=== PATIENT | female | born 1980 | race African-American/Black ===

== ENCOUNTER 2018-05-31 19:37 | Observation (INO) | payer MEDICARE ==
[~2018-05-31 19:37] MED LIST: ISOVUE-370 76%-LOCM 1 ML ONE
[2018-05-31 20:26] LABS: Hemoglobin 12.8 g/dL (12.0-16.0); Mean Corpuscular HGB CONC 32.5 g/dL (32.0-36.0); Mean Corpuscular Hemoglobin 33.4 pg (27.0-31.0); Mean Platelet Volume 8.3 fL (7.4-10.4); Platelet Count 136 thou/uL (130-400); RBC Distribution Width 10.9 % (11.5-14.5); Red Blood Cell (RBC) Count 3.82 mill/uL (4.20-5.40); White Blood Cell (WBC) Count 10.1 thou/uL (4.8-10.8)
[2018-05-31 20:41] LABS: ALT (SGPT) 9 U/L (8-55); AST (SGOT) 14 U/L (5-34); Albumin 4.3 g/dL (3.5-5.0); Alkaline Phosphatase 57 U/L (40-150); Anion Gap 15 mmol/L (10-20); BUN (Urea Nitrogen) 7 mg/dL (7.0-18.7); Bilirubin, Total 0.4 mg/dL (0.2-1.2); CK (CPK) 106 U/L (29-168); Calc. Creatinine Clearance 0 mL/min (70-130); Carbon Dioxide 20 mmol/L (22-29); Chloride 107 mmol/L (98-107); Estimated GFR-MDRD Greater than 90; Globulin 2.9 g/dL (2.4-3.5); Glucose 91 mg/dL (70-105); Lipase 24 U/L (8-78); Potassium 3.8 mmol/L (3.5-5.1); Protein, Total 7.2 g/dL (6.0-8.3); Sodium 138 mmol/L (136-145)
[2018-05-31 20:44] LABS: BHCG - Serum Negative (NEGATIVE); Pregs Control Background? CLEAR/WHITE (CLR/WHITE); Pregs Control Bar Appear? YES (CONTROL BAR)
[2018-05-31 20:54] LABS: Lymphocytes 27 % (21-51); MDiff Complete? YES; Monocytes 1 % (0-10); Neutrophil 72 % (42-75); Platelet Morphology Comment Appears Adequate; RBC Morphology Normal
[2018-05-31 20:57] LABS: INR-International Normal Ratio 1.1; PTT 30.6 SEC (22.9-36.1); Prothrombin Time 14.7 SEC (12.0-14.7)
[2018-05-31] MEDS ORDERED: Fentanyl 100 MCG/2 ML VIAL ONE (21:21)
[2018-05-31] MEDS ORDERED: Clopidogrel Bisulfate 75 MG TAB ONE (21:21)
[2018-05-31 21:43] LABS: Bilirubin Negative (Negative); Blood, Urine Negative (Negative); Clarity CLEAR (Clear); Glucose, Urine (Dipstick) Negative (Negative); Leukocyte Negative (Negative); Nitrite Negative (Negative); Protein, Urine (Dipstick) Negative (Neg-Trace); Specific Gravity, Urine 1.037 (1.002-1.036); pH, Urine 7.5 (5.0-9.0)
[2018-05-31 21:52] LABS: Amphetamine Not Detected (NotDetected); Barbiturates Screen Not Detected (NotDetected); Benzodiazepine Screen Not Detected (NotDetected); Cocaine Metabolite Screen Not Detected (NotDetected); Medtox Control Line Valid? VALID (VALID); Medtox Reader # READER 4; Methadone Not Detected (NotDetected); Methamphetamine Not Detected (NotDetected); Opiate Screen Not Detected (NotDetected); Oxycodone Screen Not Detected (NotDetected); Phencyclidine (PCP) Not Detected (NotDetected); THC/Cannabinoid Screen Detected (NotDetected); Tricyclic Screen Not Detected (NotDetected)
--- NOTE | 2018-05-31 22:13 | RAD ---
CHEST ONE VIEW: History: Chest pain Comparison: 04-23-16 FINDINGS: Lungs are clear. No pneumothorax or effusion. Cardiac silhouette and mediastinal contours are within normal limits. No acute osseous abnormality. IMPRESSION: No acute intrathoracic abnormality. POS: [facility]
--- NOTE | 2018-05-31 22:25 | CT ---
CT BRAIN WITHOUT CONTRAST: History: Altered mental status. Comparison: 2004 FINDINGS: There is no acute hemorrhage or infarct. No midline shift or mass effect. Ventricular size and extraa xial CSF spaces are normal. The calvarium is intact. The paranasal sinuses and mastoids are clear. Globes are intact. IMPRESSION: No acute intracranial abnormality. POS: [facility]
--- NOTE | 2018-05-31 22:39 | CT ---
CT ANGIOGRAM HEAD WITH CONTRAST: History: Stroke alert. Comparison: Ct brain. Same day. FINDINGS: CT angiogram of the head and neck was performed after the intravenous administration of contrast. 3D rendering is provided. Lung apices are clear. Thyroid is unremarkable. Mild straightening of the cervical lordosis. No cervical adenopathy. The globes are normal. The vertebral arteries are codominant. No significant thrombosis nor aneurysm formation. The common carotid arteries are patent. No stenosis, thrombosis, or aneurysm formation. [place] is patent. IMPRESSION: Normal CT angiogram of the head and neck. Code CR. Dr. Marroquin. 9:00 p.m. POS: [facility]
[2018-06-01] MEDS: Acetaminophen 325 MG TAB PO PRN ×2 (00:21→08:18)
[2018-06-01 00:48] VITALS: BMI 20.7
--- NOTE | 2018-06-01 02:20 | HP ---
CHIEF COMPLAINT: Chest pain. HISTORY OF PRESENT ILLNESS: She is a 37-year-old woman with no significant past medical history of hypertension. She came in with having some chest pain and left-sided numbness of the left arm today and weakness 3/5 in the left arm also. The patient was coaching basket ball, was worked up and after 2 hours practice she felt like her symptoms started, left arm pain with numbness and weakness, and some slurred speech noted by her partner. She denies loss of consciousness, no vomiting, and the patient has a strong family history of stroke in the past. When she came to the ER, she was started on stroke protocol. TPN was not given because of her symptoms and case discussed with Interventional Neurosurgeon On-call. CTA neck , CT head and CT scan of neck came back negative. Her motor weakness was 2/5 when she came in, improved to 4/5. MEDICATIONS: She is not taking any medicines at home. PERSONAL HISTORY: She does smoke 1 pack a day and denies alcohol and drug use. FAMILY HISTORY: Positive for stroke. REVIEW OF SYSTEMS: GENERAL: She reported weakness on her left side, some headache, some vision changes. CARDIOVASCULAR: She has some chest pain radiating to her neck with numbness. RESPIRATORY: There is no cough, no short of breath, no wheezing. ABDOMEN: GI, no nausea, no vomiting, no diarrhea. No hematemesis, no melena. MUSCULOSKELETAL: No joint pain. NEUROLOGIC: She does have some weakness and numbness on her left upper arm. PHYSICAL EXAMINATION: VITAL SIGNS: Pulse 85, blood pressure 180/84, respirations 20, and temperature 98.4. HEENT: Head is atraumatic and normocephalic. Pupils are round and reactive. Extraocular movements are intact. Ear, nose, and throat normal. Tongue, mucosa moist. NECK: Supple. No JVD. No thyromegaly. No carotid bruit. Trachea midline. No lymphadenopathy. CHEST: Normal vesicular breathing. Chest wall tenderness noted. No wheezing. No crackles or rhonchi. CVS: S1 is audible. No S3 or S4. ABDOMEN: Soft. Bowels sounds audible. No organomegaly. No guarding. EXTREMITIES: No peripheral edema. No cyanosis or clubbing. NEUROLOGIC: She is alert and oriented x3. Her left arm show some numbness and tingling and power 4/4 and some stiffness noted. No weakness in all extremities. Plantars are downgoing. Deep tendon reflexes are faster bilaterally, +2. LABORATORY DATA: Labs show EKG normal sinus rhythm, 70s. No ST changes. CT head is negative. CT angio of head is negative. MRI pending. Urine drug screen is negative. WBC 10.0, hemoglobin 12.8, hematocrit 39.3, platelets 136, PT 14.7, INR 1.1. Sodium 138, potassium 3.8, chloride 107, carbon dioxide 20, anion gap 15, BUN 17, creatine 0.8, glucose 91, calcium 9.0, AST 9, creatinine kinase is 106, Lipase 24. Urine negative. Urine screen, cannabinoid detected. ASSESSMENT AND PLAN: 1. Stroke-like symptoms, possibly weak in the left upper extremities. CTA head and neck are negative. Stroke protocol. Echocardiogram in the morning. MRA in the morning. She is allergic to aspirin. Plavix was given in the ER. Lipitor provided in the morning and continue Lipitor. 2. Strong family history of stroke. 3. Thrombocytopenia mild, monitored. 4. Chronic smoker, tobacco abuse disorder. Counseling was done. 5. DVT prophylaxis, SCD's. 6. Full code. 7. Stroke protocol initiated. 8. Neurology will be consulted. Job ID: [id number] [facility]
[2018-06-01] MEDS: Clopidogrel Bisulfate 75 MG TAB PO SCH (08:18)
[2018-06-01] MEDS ORDERED: Lorazepam 1 MG TAB PO SCH (11:15)
[2018-06-01] MEDS ORDERED: Cyclobenzaprine 10 MG TAB PO PRN (13:56)
--- NOTE | 2018-06-01 15:36 | MRI ---
NONCONTRAST MRI BRAIN: Date: 06/01/18 INDICATION: Stroke, left-sided weakness. FINDINGS: There is no evidence of acute territorial infarction, intracranial mass effect, midline shift, or diana triculomegaly. No hemorrhagic susceptibility is seen. No intracranial hemorrhage. Visualized skull ba se flow-voids are patent. IMPRESSION: No acute territorial infarction, or intracranial mass effect. POS: [facility]
[2018-06-01] MEDS ORDERED: Atorvastatin Calcium 40 MG TAB PO SCH (21:00)
[2018-06-02] MEDS ORDERED: Lorazepam 1 MG TAB PO SCH (08:45)
[2018-06-02] MEDS ORDERED: Terbinafine 1% 30 GM TUBE TOP SCH (09:00)
[2018-06-02] MEDS: Clopidogrel Bisulfate 75 MG TAB PO SCH (09:53)
--- NOTE | 2018-06-02 12:20 | MRI ---
MRI CERVICAL SPINE WITHOUT CONTRAST: Date: 06/02/18 COMPARISON: None. HISTORY: Left-sided neck pain that extends into left arm. TECHNIQUE: Multiplanar, multisequence MR images were obtained of the cervical spine without contrast. FINDINGS: The vertebral bodies and intervertebral discs demonstrate normal height and alignment without fractur e or subluxation. The visualized cord demonstrates normal signal throughout. The craniocervical junct ion is unremarkable. The prevertebral and paraspinal soft tissues are unremarkable. No significant bulges or protrusions are seen throughout the cervical spine. There appears to be a ce ntral protrusion at T3-4, only imaged on the sagittal sequences. No neural foraminal or central canal stenosis is seen in the cervical spine. No posterior facet arthrosis is seen. IMPRESSION: 1. No significant cervical spine abnormality. 2. Partially visualized central protrusion at T3-4. POS: [facility]
[2018-06-02 12:24] VITALS: TEMP 98.6
--- NOTE | 2018-06-02 15:58 | PDOC.PN ---
- Subjective Encounter Start Date: 06/01/18 Encounter Start Time: 11:15 Subjective: pt up in bed still has weakness to her left arm - Objective Vital Signs & Weight: Vital Signs (12 hours) Temp Pulse Resp BP Pulse Ox 06/02/18 12:00 98.6 F 94 20 120/87 100 06/02/18 08:00 98.4 F 72 20 126/83 100 06/02/18 04:00 98.5 F 86 16 131/77 100 Weight Weight 124 lb 6.4 oz I&O: 06/01/18 06/02/18 06/03/18 06:59 06:59 06:59 Intake Total 300 240 720 Output Total 2 Balance 300 238 720 Result Diagrams: 05/31/18 20:14 05/31/18 20:14 Phys Exam - Physical Examination Neck: no nodes, no JVD, supple, full ROM Respiratory: no wheezing, no rales, no rhonchi, wheezing present, clear to auscultation bilateral Cardiovascular: RRR, no significant murmur, no rub, gallop, irregular Gastrointestinal: soft, non-tender, no distention, positive bowel sounds Musculoskeletal: no edema, pulses present, edema present some weakness noted to left arm but able to move it Dx/Plan (1) Left arm weakness Code(s): R29.898 - OTH SYMPTOMS AND SIGNS INVOLVING THE MUSCULOSKELETAL SYSTEM Status: Acute (2) Smoking Code(s): F17.200 - NICOTINE DEPENDENCE, UNSPECIFIED, UNCOMPLICATED Status: Acute - Plan pt's mri brain negative. -: stroke work up negative. she has been advised against smoking -: will get cervical MRi to rule out any nerve issues. * . Review of Systems - Review of Systems Respiratory: negative: Cough, Dry, Shortness of Breath, Hemoptysis, SOB with Excertion, Pleuritic Pain, Sputum, Wheezing Cardiovascular: negative: chest pain, palpitations, orthopnea, paroxysmal nocturnal dyspnea, edema, light headedness, other Gastrointestinal: negative: Nausea, Vomiting, Abdominal Pain, Diarrhea, Constipation, Melena, Hematochezia, Other Musculoskeletal: negative: Neck Pain, Shoulder Pain, Arm Pain, Back Pain, Hand Pain, Leg Pain, Foot Pain, Other Neurological: Weakness - Medications/Allergies Allergies/Adverse Reactions: Allergies Allergy/AdvReac Type Severity Reaction Status Date / Time aspirin Allergy Verified 05/31/18 23:50 Medications: Current Medications Acetaminophen (Tylenol) 650 mg PO Q4H PRN PRN Reason: Headache/Fever or Pain Last Admin: 06/01/18 08:18 Dose: 650 mg Atorvastatin Calcium (Lipitor) 40 mg PO HS [facility] Last Admin: 06/01/18 22:01 Dose: 40 mg Clopidogrel Bisulfate (Plavix) 75 mg PO DAILY [facility] Last Admin: 06/02/18 09:53 Dose: 75 mg Cyclobenzaprine HCl (Flexeril) 10 mg PO TID PRN PRN Reason: Muscle Spasm Last Admin: 06/01/18 14:55 Dose: 10 mg Sodium Chloride (Flush - Normal Saline) 10 ml IVF PRN PRN PRN Reason: Saline Flush Last Admin: 06/01/18 08:18 Dose: 10 ml Terbinafine HCl (Lamisil 1% Cream) 0 gm TOP DAILY [facility] Last Admin: 06/02/18 09:53 Dose: 1 applic
[2018-06-02 16:01] VITALS: BP 146/96
--- NOTE | 2018-06-03 01:57 | DIS ---
DATE OF ADMISSION: 05/31/2018 DATE OF DISCHARGE: 06/02/2018 DISCHARGE DIAGNOSES: As of the following; 1. Left arm weakness. 2. Smoking history. HOSPITAL COURSE: The patient is a 37-year-old female who initially presented to the hospital with possible stroke-like symptoms. The patient did have a CT brain which initially was negative. She also had an MRI of the brain, which was negative. She also had a CTA and was evaluated by a neurologist on arrival, CTA was also normal. The patient was seen by Neurology. She also had an echocardiogram which indicated an EF of 50% to 55%, everything else was normal. The patient stated that she has been under a lot of stress recently and her arm movement improved throughout the hospital stay. I also went ahead and did a cervical spine MRI to rule out any nerve abnormalities. Her cervical MRI was essentially normal. The patient was able to move her arm completely without any difficulty. The patient will follow up with [facility] as an outpatient. The patient has been advised against smoking cessation given increased risk of stroke in the future. HOME MEDICATIONS: She will be going home on no home medications. DISCHARGE INSTRUCTIONS: The patient has been recommended to follow up with her primary care doctor as an outpatient. PHYSICAL EXAMINATION: VITAL SIGNS: On discharge, 98.6, 94, 28, 100% on room air, 120/67. GENERAL: She is awake, alert, and oriented x3. Does not appear in any distress. CV: S1, S2 present. No murmurs, rubs, or gallops. ABDOMEN: Soft and nontender. Bowel sounds are present x2. EXTREMITIES: No edema. Pedal pulses are present x2. NEUROVASCULAR: No focal deficits noted. Again, she will be discharged home. She will follow up with her primary care doctor. Her left arm weakness was thought to be most likely secondary to stress induced and also significant amount of muscle tension was noted around her right cervical area. Job ID: [id number]
== END 2018-06-02 16:01 | disposition home or self-care (01) ==
LOC: ERS 19:37 → 2SE 23:01 → INTOOBSV 23:01
PROVIDERS: ADMIT Family Medicine; ATTEND Family Medicine
DX: R53.1 Weakness (principal); R47.81 Slurred speech; R07.9 Chest pain, unspecified; F17.210 Nicotine dependence, cigarettes, uncomplicated; D69.6 Thrombocytopenia, unspecified; Z88.8 Allergy status to other drugs, medicaments and biological substances; Z82.3 Family history of stroke
CPT/HCPCS: 70450; 70496; 70498; 70551; 71045; 72141; 80053; 80061; 80306; 81003; 82550; 82962; 83690; 84484; 84703; 85025; 85610; 85730; 93005; 93306; 96361; 96374; 97110; 97116 ×2; 97139 ×3; 99285; G0378 ×2; 36415; 36416; J3010; Q9966

== ENCOUNTER 2018-06-04 14:47 | Emergency (ER) | payer MEDICARE ==
[2018-06-04 15:13] LABS: #Basophils 0.2 thou/uL (0.0-0.2); #Eosinphils 0.2 thou/uL (0.0-0.7); #Monocytes 0.9 thou/uL (0.11-0.59); #Neutrophils 7.1 thou/uL (1.40-6.50); %Basophils 1.5 % (0.0-1.0); %Eosinophils 1.8 % (0.0-10.0); %Lymphocytes 26.1 % (21.0-51.0); %Monocytes 8.3 % (0.0-10.0); %Neutrophils 62.4 % (42.0-75.0); Mean Corpuscular HGB CONC 32.6 g/dL (32.0-36.0); Mean Corpuscular Hemoglobin 33.7 pg (27.0-31.0); Mean Platelet Volume 7.6 fL (7.4-10.4); Platelet Count 282 thou/uL (130-400); RBC Distribution Width 11.1 % (11.5-14.5); Red Blood Cell (RBC) Count 4.14 mill/uL (4.20-5.40); White Blood Cell (WBC) Count 11.4 thou/uL (4.8-10.8)
--- NOTE | 2018-06-04 15:15 | CT ---
CT HEAD NONCONTRAST: Date: 06/04/18 COMPARISON: 05/31/18. FINDINGS: There is no acute intracranial hemorrhage, mass effect, or midline shift. Imaged paranasal sinuses ar e clear. IMPRESSION: No acute intracranial hemorrhage or mass effect. Notification placed at 1502 hours on 06/04/18. CODE CR. POS: [facility]
[2018-06-04 15:22] LABS: INR-International Normal Ratio 1.1; PTT 28.2 SEC (22.9-36.1); Prothrombin Time 14.6 SEC (12.0-14.7)
[2018-06-04 15:38] LABS: ALT (SGPT) 12 U/L (8-55); AST (SGOT) 22 U/L (5-34); Albumin 4.5 g/dL (3.5-5.0); Alkaline Phosphatase 55 U/L (40-150); Anion Gap 15 mmol/L (10-20); BUN (Urea Nitrogen) 10 mg/dL (7.0-18.7); Bilirubin, Total 0.6 mg/dL (0.2-1.2); CK (CPK) 250 U/L (29-168); Calc. Creatinine Clearance 0 mL/min (70-130); Calcium 9.4 mg/dL (7.8-10.44); Carbon Dioxide 18 mmol/L (22-29); Chloride 106 mmol/L (98-107); Estimated GFR-MDRD 76; Globulin 3.1 g/dL (2.4-3.5); Glucose 85 mg/dL (70-105); Potassium 4.9 mmol/L (3.5-5.1); Protein, Total 7.6 g/dL (6.0-8.3); Sodium 134 mmol/L (136-145)
[2018-06-04] MEDS ORDERED: Dexamethasone 10 MG/ML VIAL ONE (16:00)
[2018-06-04] MEDS ORDERED: Metoclopramide HCl 10 MG/2 ML VIAL ONE (16:00)
[2018-06-04 16:30] LABS: Bilirubin Negative (Negative); Blood, Urine Negative (Negative); Clarity CLEAR (Clear); Glucose, Urine (Dipstick) Negative (Negative); Leukocyte Negative (Negative); Nitrite Negative (Negative); Protein, Urine (Dipstick) Negative (Neg-Trace); Specific Gravity, Urine 1.016 (1.002-1.036); pH, Urine 7.5 (5.0-9.0)
[2018-06-04 16:40] LABS: Amphetamine Not Detected (NotDetected); Barbiturates Screen Not Detected (NotDetected); Benzodiazepine Screen Not Detected (NotDetected); Cocaine Metabolite Screen Not Detected (NotDetected); Medtox Control Line Valid? VALID (VALID); Medtox Reader # READER 1; Methadone Not Detected (NotDetected); Methamphetamine Not Detected (NotDetected); Opiate Screen Not Detected (NotDetected); Oxycodone Screen Not Detected (NotDetected); Phencyclidine (PCP) Not Detected (NotDetected); THC/Cannabinoid Screen Detected (NotDetected); Tricyclic Screen Not Detected (NotDetected)
[2018-06-04 16:45] LABS: BHCG - Serum Negative (NEGATIVE); Pregs Control Background? CLEAR/WHITE (CLR/WHITE); Pregs Control Bar Appear? YES (CONTROL BAR)
[2018-06-04 16:53] LABS: Acetaminophen Less than 6.0 mcg/mL (10.0-30.0); Alcohol Less than 10 mg/dL (Less than 10); Lipase 35 U/L (8-78); Salicylate Less than 8.0 mg/dL (15.0-30.0)
== END 2018-06-04 17:16 | disposition home or self-care (01) ==
LOC: ERS 14:47
DX: M54.12 Radiculopathy, cervical region (principal); J45.909 Unspecified asthma, uncomplicated; F31.9 Bipolar disorder, unspecified; F20.9 Schizophrenia, unspecified; F17.210 Nicotine dependence, cigarettes, uncomplicated
CPT/HCPCS: 36415; 36416; 70450; 80053; 80306; 80307; 81003; 82550; 83690; 84146; 84484; 84703; 85025; 85610; 85730; 93005; 96361; 96374; 96375; J1100; J2765

== ENCOUNTER 2018-10-30 21:54 | Emergency (ER) | payer MEDICARE | END 2018-10-30 23:28 | disposition home or self-care (01) | LOC: ERS 21:54 | DX: R23.8 Other skin changes (principal); J45.909 Unspecified asthma, uncomplicated; F31.9 Bipolar disorder, unspecified; F20.9 Schizophrenia, unspecified; F17.210 Nicotine dependence, cigarettes, uncomplicated | CPT/HCPCS: 99283 ==

== ENCOUNTER 2019-07-04 08:45 | Emergency (ER) | payer OTHER, SELFPAY | END 2019-07-04 09:46 | disposition home or self-care (01) | LOC: ERS 08:45 | DX: S20.221A Contusion of right back wall of thorax, initial encounter (principal); F31.9 Bipolar disorder, unspecified; F20.9 Schizophrenia, unspecified; J45.909 Unspecified asthma, uncomplicated; F17.210 Nicotine dependence, cigarettes, uncomplicated; V43.02XA Car driver injured in collision with other type car in nontraffic accident, initial encounter; Y92.481 Parking lot as the place of occurrence of the external cause | CPT/HCPCS: 99284 ==

== ENCOUNTER 2021-04-19 16:53 | Emergency (ER) | payer SELFPAY ==
[2021-04-19] MEDS ORDERED: Acetaminophen 500 MG TAB ONE (18:09)
== END 2021-04-19 18:12 | disposition left against medical advice (07) ==
LOC: ERS 16:53
DX: Z53.21 Procedure and treatment not carried out due to patient leaving prior to being seen by health care provider (principal)

== ENCOUNTER 2021-08-02 10:10 | Emergency (ER) | payer SELFPAY ==
[2021-08-02] MEDS ORDERED: Famotidine/PF 20 mg/2ml Vial ONE (10:37)
[2021-08-02] MEDS ORDERED: Sucralfate 1 GM/10 ML UDCUP ONE (10:37)
[2021-08-02 10:56] LABS: BHCG - Serum Negative (NEGATIVE); Pregs Control Background? CLEAR/WHITE (CLR/WHITE); Pregs Control Bar Appear? YES (CONTROL BAR)
[2021-08-02 10:57] LABS: #Basophils 0.1 thou/uL (0.0-0.2); #Eosinphils 0.2 thou/uL (0.0-0.7); #Lymphocytes 2.2 thou/uL (1.20-3.40); #Monocytes 0.6 thou/uL (0.11-0.59); #Neutrophils 4.6 thou/uL (1.40-6.50); %Basophils 1.1 % (0.0-1.0); %Eosinophils 2.6 % (0.0-10.0); %Lymphocytes 28.6 % (21.0-51.0); %Monocytes 7.6 % (0.0-10.0); %Neutrophils 60.2 % (42.0-75.0); Hemoglobin 12.6 g/dL (12.0-16.0); Mean Corpuscular HGB CONC 33.5 g/dL (32.0-36.0); Mean Corpuscular Hemoglobin 34.6 pg (27.0-31.0); Platelet Count 246 thou/uL (130-400); Red Blood Cell (RBC) Count 3.65 mill/uL (4.20-5.40); White Blood Cell (WBC) Count 7.6 thou/uL (4.8-10.8)
[2021-08-02 11:07] LABS: ALT (SGPT) 7 U/L (8-55); AST (SGOT) 14 U/L (5-34); Alkaline Phosphatase 52 U/L (40-110); Anion Gap 10 mmol/L (10-20); BUN (Urea Nitrogen) 8 mg/dL (7.0-18.7); Bilirubin, Total 0.8 mg/dL (0.2-1.2); Calc. Creatinine Clearance 0 mL/min (70-130); Calcium 8.6 mg/dL (7.8-10.44); Carbon Dioxide 23 mmol/L (22-29); Chloride 107 mmol/L (98-107); Globulin 2.8 g/dL (2.4-3.5); Glucose 86 mg/dL (70-105); Lipase 29 U/L (8-78); Potassium 3.7 mmol/L (3.5-5.1); Protein, Total 6.8 g/dL (6.0-8.3); Sodium 136 mmol/L (136-145)
== END 2021-08-02 11:53 | disposition home or self-care (01) ==
LOC: ERS 10:10
DX: R07.89 Other chest pain (principal); R00.1 Bradycardia, unspecified; I10 Essential (primary) hypertension; J45.909 Unspecified asthma, uncomplicated; F17.210 Nicotine dependence, cigarettes, uncomplicated
CPT/HCPCS: 36415; 71045; 80053; 83690; 84484; 84703; 85025; 93005; 96374; S0028

== ENCOUNTER 2022-08-05 17:01 | Emergency (ER) | payer OTHER, SELFPAY ==
[2022-08-05] MEDS ORDERED: Acetaminophen 500 MG TAB ONE (17:53)
[2022-08-05] MEDS ORDERED: Ondansetron ODT 4 MG TAB ONE (17:53)
[2022-08-05] MEDS ORDERED: Ketorolac Tromethamine 30 MG/ML VIAL ONE (17:53)
[2022-08-05] MEDS ORDERED: Dicyclomine 20 MG/2 ML VIAL ONE (17:53)
[2022-08-05 18:19] LABS: Bacteria/HPF None Seen HPF (None Seen); Bilirubin Negative (Negative); Blood, Urine 1+ (Negative); Clarity Clear (Clear); Glucose, Urine (Dipstick) Normal (Negative); Ketone, Urine Greater than 150 mg/dL (Negative); Leukocyte Negative Leu/uL (Negative); Nitrite Negative (Negative); Pregnancy Test - Urine (BHCG) Negative (Negative); Pregu Control Background? CLEAR/WHITE (CLR/WHITE); Pregu Control Bar Appear? YES (CONTROL BAR); Protein, Urine (Dipstick) 50 mg/dL (Neg-Trace); Specific Gravity 1.038 (1.002-1.036); Specific Gravity, Urine 1.038 (1.002-1.036); Squamous Epithelial 0-3 HPF (0-3); WBC/HPF 0-3 HPF (0-3); pH, Urine 6.5 (5.0-9.0)
[2022-08-05 18:28] LABS: SARS-CoV-2 NAA Rapid Test Not Detected (NotDetected)
== END 2022-08-05 19:05 | disposition home or self-care (01) ==
LOC: ERS 17:01
DX: B34.9 Viral infection, unspecified (principal); I10 Essential (primary) hypertension; J45.909 Unspecified asthma, uncomplicated; Z20.822 Contact with and (suspected) exposure to COVID-19
CPT/HCPCS: 81003; 81015; 81025; 96372; 99284; J1885; Q0162

== ENCOUNTER 2023-03-23 07:05 | Emergency (ER) | payer OTHER ==
[2023-03-23] MEDS ORDERED: LORazepam 2 MG/ML SYR.(CARPUJECT) ONE (07:51)
[2023-03-23] MEDS ORDERED: methylPREDNISolone Sod Succ/PF 125 MG/2 ML VIAL ONE (07:51)
[2023-03-23 07:55] LABS: Hematocrit 40.3 % (36.0-47.0); Hemoglobin 13.9 g/dL (12.0-16.0); Manual Diff?? YES; Mean Corpuscular HGB CONC 34.5 g/dL (32.0-36.0); Mean Corpuscular Volume 98.5 fl (78.0-98.0); Platelet Count 222 10x3/uL (130-400); RBC Distribution Width 11.5 % (11.5-14.5); Red Blood Cell (RBC) Count 4.09 mill/uL (4.20-5.40); White Blood Cell (WBC) Count 16.5 10x3/uL (4.8-10.8)
[2023-03-23 08:09] LABS: Delete Auto Diff?? YES
[2023-03-23 08:24] LABS: Troponin I Less than 0.010 ng/mL (< 0.028)
[2023-03-23 08:58] LABS: ALT (SGPT) 12 U/L (8-55); AST (SGOT) 19 U/L (5-34); Albumin 4.5 g/dL (3.5-5.0); Alkaline Phosphatase 56 U/L (40-110); Anion Gap 14 mmol/L (10-20); BUN (Urea Nitrogen) 8 mg/dL (7.0-18.7); Bilirubin, Total 0.8 mg/dL (0.2-1.2); Calc. Creatinine Clearance 0 mL/min (70-130); Calcium 9.2 mg/dL (7.8-10.44); Carbon Dioxide 22 mmol/L (22-29); Chloride 107 mmol/L (98-107); Estimated GFR 95; Globulin 3.3 g/dL (2.4-3.5); Glucose 86 mg/dL (70-105); Protein, Total 7.8 g/dL (6.0-8.3); Sodium 139 mmol/L (136-145)
[2023-03-23 09:16] LABS: Anisocytosis SLIGHT = 6-15 cells HPF (0-5); Band 4 % (5-11); CellaVision Operator ID LAB.CMB; Eosinophils 1 % (0-10); Lymphocytes 5 % (21-51); Macrocytosis SLIGHT = 6-15 cells HPF (0-5); Monocytes 8 % (0-10); Neutrophil 82 % (42-75); Ovalocytes SLIGHT = 2-5 cells HPF (0-1); Platelet Adequacy Comment Platelets Normal; Total Cell Count 100
[2023-03-23] MEDS ORDERED: Ipratropium/Albuterol 3 ML NEB ONE (10:47)
== END 2023-03-23 11:19 | disposition home or self-care (01) ==
LOC: ERS 07:05
DX: J44.1 Chronic obstructive pulmonary disease with (acute) exacerbation (principal); I10 Essential (primary) hypertension; F17.210 Nicotine dependence, cigarettes, uncomplicated
CPT/HCPCS: 71045; 80053; 84484; 85025; 93005; 94640; 96374; 96375; J2060; J2930; J7620

== ENCOUNTER 2024-01-10 21:12 | Emergency (ER) | payer OTHER | END 2024-01-10 21:49 | LOC: ERS 21:12 | DX: Z53.21 Procedure and treatment not carried out due to patient leaving prior to being seen by health care provider (principal) ==